=== PATIENT | male | born 1935 | race Caucasian/White ===

== ENCOUNTER 2023-08-15 10:22 | Emergency (ER) | payer OTHER ==
[~2023-08-15] VITALS: Ht 177.8 cm; Wt 77.1 kg
[2023-08-15 11:24] LABS: BASOPHILS ABSOLUTE AUTO 0.04 K/mm3 (0.00-0.23); BASOPHILS PERCENT AUTO 0 % (0-2); EOSINOPHILS ABSOLUTE AUTO 0.19 K/mm3 (0.00-0.68); EOSINOPHILS PERCENT AUTO 2 % (0-6); Hematocrit 32.3 % (37.0-53.0); Hemoglobin 10.3 g/dL (13.5-17.5); IMMATURE GRAN ABSOLUTE AUTO 0.04 K/mm3 (0.00-0.10); IMMATURE GRAN PERCENT AUTO 0 % (0-1); LYMPHOCYTES ABSOLUTE AUTO 1.38 K/mm3 (0.84-5.20); LYMPHOCYTES PERCENT AUTO 13 % (21-46); MONOCYTES ABSOLUTE AUTO 0.91 K/mm3 (0.16-1.47); MONOCYTES PERCENT AUTO 9 % (4-13); Mean Corpuscular HGB 28.4 pg (26.0-34.0); Mean Corpuscular HGB Conc 31.9 g/dL (31.5-36.5); Mean Corpuscular Volume 89 fL (80-100); Mean Platelet Volume 10.2 fL (9.1-12.4); NEUTROPHILS ABSOLUTE AUTO 8.08 K/mm3 (1.96-9.15); NEUTROPHILS PERCENT AUTO 76 % (41-73); Platelet Count 282 K/mm3 (150-400); RDW Coefficient Variation 14.6 % (11.7-14.2); RDW Standard Deviation 47.4 fL (35.1-46.3); Red Blood Cell Count 3.63 M/mm3 (4.30-5.90); White Blood Cell Count 10.64 K/mm3 (4.00-11.30)
[2023-08-15 11:37] LABS: Albumin, Blood 2.8 g/dL (3.4-5.0); Albumin/Globulin Ratio 0.7 (0.8-1.8); Bilirubin, Total 0.3 mg/dL (0.1-1.0); Bun/Creatinine Ratio 22.4 (12.0-20.0); Creatinine, Blood 1.65 mg/dL (0.60-1.20); Globulin, Blood 4.3 g/dL (2.2-4.0); Potassium, Blood 4.3 mmol/L (3.5-5.5); Total Protein, Blood 7.1 g/dL (6.4-8.2)
[2023-08-15] MEDS ORDERED: NS 1,000 ML IV SCH (11:40)
[2023-08-15] MEDS ORDERED: Acetaminophen 500 MG Tab PO ONE (11:45)
[2023-08-15] MEDS ORDERED: TROLAMINE SALICYLATE 10% CREAM 141 GM TUBE TOP ONE (11:45)
[2023-08-15 15:00] VITALS: BP 169/86
== END 2023-08-15 15:46 | disposition home or self-care (01) ==
LOC: ER 10:22
PROVIDERS: Emergency Medicine
DX: R55 Syncope and collapse (principal); M19.012 Primary osteoarthritis, left shoulder; Z88.8 Allergy status to other drugs, medicaments and biological substances; Z88.5 Allergy status to narcotic agent
CPT/HCPCS: 71045; 73030; 80053; 83735; 83880; 84484; 85025; 93005; 93010; 93242; 99284-25; A9270; J7030

== ENCOUNTER 2023-09-20 08:12 | Day surgery (SDC) | payer OTHER ==
[2023-09-20] VITALS (11 sets, daily range): BP systolic 121–164; BP diastolic 57–102
[~2023-09-20] VITALS: Ht 177.8 cm; Wt 79.4 kg
[~2023-09-20 08:12] MED LIST: ATOR40TA PO; LOSA50 PO; OMEP20ER PO; TAMS.4ER PO
[2023-09-20] MEDS ORDERED: Heparin Sodium 1000 Units/ML 10ML MDV ONE (09:45)
[2023-09-20] MEDS ORDERED: CeFAZolin Sodium 1000 mg Vial ONE ×2 (09:45→14:53)
[2023-09-20] MEDS ORDERED: NS 1,000 ML IV ONE ×2 (09:45→10:22)
[2023-09-20] MEDS ORDERED: Midazolam HCl 1MG / ML 2ML Vial ONE ×2 (10:21→11:02)
[2023-09-20] MEDS ORDERED: FentaNYL Citrate 50 MCG/ML 2 ML Injection ONE (10:22)
[2023-09-20] MEDS ORDERED: NS 100 ML IV ONE ×2 (10:22→14:53)
[2023-09-20] MEDS ORDERED: CeFAZolin Sodium 2,000 MG VIAL ONE (10:22)
--- NOTE | 2023-09-20 12:06 | NUR ---
PT BACK TO RECOVERY ROOM VIA RECLINER AFTER PROCEDURE. AWAKE AND ALERT, DENIES ANY PAIN OR DISCOMFORT. ICE WATER AND LUNCH TRAY GIVEN. CALL LIGHT IN REACH, VSS. LEFT CHEST SITE CLEAN AND DRY, NO BLEEDING OR SWELLING NOTED TO SITE.
--- NOTE | 2023-09-20 15:25 | NUR ---
site soft and non-tender per pt. no bleeding noted. ancef 1g iv complete. pt resting in chair. 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
--- NOTE | 2023-09-20 15:39 | NUR ---
pt given dc instructions and verbalized understanding. iv out. pt changed. sling applied. site soft and non-tender per pt. no bleeding noted. pt taken to [facility] via [facility]. son to take pt home.
== END 2023-09-20 16:49 | disposition home or self-care (01) ==
LOC: MHTC 08:12 → PCU 12:04 → MHTC 12:23
DX: I49.5 Sick sinus syndrome (principal); I45.5 Other specified heart block; R55 Syncope and collapse; I10 Essential (primary) hypertension; E78.5 Hyperlipidemia, unspecified; Z88.8 Allergy status to other drugs, medicaments and biological substances; Z79.899 Other long term (current) drug therapy
CPT/HCPCS: 33208; 71045; 76937; 99152; 99153; C1785; C1894; C1898; J0690; J1644; J2250; J3010; J7030; J7040

== ENCOUNTER 2023-09-23 14:32 | Emergency (ER) | payer OTHER ==
[~2023-09-23] VITALS: Ht 182.9 cm; Wt 113.4 kg
[2023-09-23] MEDS ORDERED: NS 1,000 ML IV SCH (15:20)
[2023-09-23 15:26] LABS: BASOPHILS ABSOLUTE AUTO 0.05 K/mm3 (0.00-0.23); BASOPHILS PERCENT AUTO 1 % (0-2); EOSINOPHILS ABSOLUTE AUTO 0.18 K/mm3 (0.00-0.68); EOSINOPHILS PERCENT AUTO 2 % (0-6); Hematocrit 31.1 % (37.0-53.0); Hemoglobin 9.9 g/dL (13.5-17.5); IMMATURE GRAN ABSOLUTE AUTO 0.01 K/mm3 (0.00-0.10); IMMATURE GRAN PERCENT AUTO 0 % (0-1); LYMPHOCYTES ABSOLUTE AUTO 1.32 K/mm3 (0.84-5.20); LYMPHOCYTES PERCENT AUTO 14 % (21-46); MONOCYTES ABSOLUTE AUTO 1.04 K/mm3 (0.16-1.47); MONOCYTES PERCENT AUTO 11 % (4-13); Mean Corpuscular HGB 27.9 pg (26.0-34.0); Mean Corpuscular HGB Conc 31.8 g/dL (31.5-36.5); Mean Corpuscular Volume 88 fL (80-100); Mean Platelet Volume 10.6 fL (9.1-12.4); NEUTROPHILS ABSOLUTE AUTO 6.55 K/mm3 (1.96-9.15); NEUTROPHILS PERCENT AUTO 72 % (41-73); Platelet Count 237 K/mm3 (150-400); RDW Coefficient Variation 13.7 % (11.7-14.2); RDW Standard Deviation 44.3 fL (35.1-46.3); Red Blood Cell Count 3.55 M/mm3 (4.30-5.90); White Blood Cell Count 9.15 K/mm3 (4.00-11.30)
[2023-09-23 16:14] LABS: Albumin/Globulin Ratio 0.7 (0.8-1.8); Bilirubin, Total 0.2 mg/dL (0.1-1.0); Bun/Creatinine Ratio 25.1 (12.0-20.0); Calcium, Blood 9.1 mg/dL (8.5-10.1); Creatinine, Blood 1.67 mg/dL (0.60-1.20); Globulin, Blood 4.2 g/dL (2.2-4.0); Potassium, Blood 4.2 mmol/L (3.5-5.5); Total Protein, Blood 7.2 g/dL (6.4-8.2)
[2023-09-23] MEDS ORDERED: Toprol Xl25 MG PO (16:59)
[2023-09-23 17:30] VITALS: BP 138/79
== END 2023-09-23 17:41 | disposition home or self-care (01) ==
LOC: ER 14:32
PROVIDERS: Physician Assistant
DX: I49.3 Ventricular premature depolarization (principal); Z88.8 Allergy status to other drugs, medicaments and biological substances; Z88.5 Allergy status to narcotic agent; Z79.899 Other long term (current) drug therapy
CPT/HCPCS: 71046; 80053; 85025; 93005; 93010; 96360; 99284-25; J7030